=== PATIENT | female | born 1935 | race African-American/Black ===

== ENCOUNTER 2017-09-16 11:57 | Outpatient (CLI) | payer MEDICARE | END 2017-09-16 11:58 | disposition home or self-care (01) | LOC: BICMAMMO 11:57 | PROVIDERS: ATTEND Internal Medicine | DX: Z12.31 Encounter for screening mammogram for malignant neoplasm of breast (principal); R92.1 Mammographic calcification found on diagnostic imaging of breast; N60.32 Fibrosclerosis of left breast; N60.31 Fibrosclerosis of right breast; Z80.3 Family history of malignant neoplasm of breast | CPT/HCPCS: 77066; G0279 ==

== ENCOUNTER 2018-09-20 10:35 | Outpatient (CLI) | payer MEDICARE | END 2018-09-20 10:36 | disposition home or self-care (01) | LOC: BICMAMMO 10:35 | PROVIDERS: ATTEND Internal Medicine | DX: Z12.31 Encounter for screening mammogram for malignant neoplasm of breast (principal); R92.1 Mammographic calcification found on diagnostic imaging of breast; Z80.3 Family history of malignant neoplasm of breast | CPT/HCPCS: 77063; 77067 ==

== ENCOUNTER 2019-07-06 18:02 | Emergency (ER) | payer MEDICARE ==
[2019-07-06 18:31] LABS: #Basophils 0.1 thou/uL (0.0-0.2); #Eosinphils 0.1 thou/uL (0.0-0.7); #Monocytes 0.5 thou/uL (0.11-0.59); #Neutrophils 3.3 thou/uL (1.40-6.50); %Basophils 1.4 % (0.0-1.0); %Eosinophils 1.6 % (0.0-10.0); %Lymphocytes 33.6 % (21.0-51.0); %Monocytes 7.9 % (0.0-10.0); %Neutrophils 55.5 % (42.0-75.0); Hemoglobin 12.6 g/dL (12.0-16.0); Mean Corpuscular HGB CONC 32.4 g/dL (32.0-36.0); Mean Corpuscular Hemoglobin 26.9 pg (27.0-31.0); Mean Platelet Volume 8.1 fL (7.4-10.4); Platelet Count 212 thou/uL (130-400); RBC Distribution Width 13.5 % (11.5-14.5); Red Blood Cell (RBC) Count 4.68 mill/uL (4.20-5.40); White Blood Cell (WBC) Count 5.9 thou/uL (4.8-10.8)
[2019-07-06] MEDS ORDERED: cloNIDine 0.1 MG TAB ONE (18:51)
--- NOTE | 2019-07-06 18:51 | RAD ---
XR Chest 1 View Portable HISTORY: Chest pain COMPARISON: None FINDINGS: The heart size is at upper limits of normal. The lungs are well expanded without focal area s of consolidation, pneumothorax or pleural effusions. IMPRESSION: No radiographic evidence of acute cardiopulmonary process.
[2019-07-06 18:56] LABS: ALT (SGPT) 18 U/L (8-55); AST (SGOT) 24 U/L (5-34); Albumin 4.3 g/dL (3.4-4.8); Alkaline Phosphatase 66 U/L (40-110); Anion Gap 12 mmol/L (10-20); BUN (Urea Nitrogen) 20 mg/dL (9.8-20.1); Bilirubin, Total 0.4 mg/dL (0.2-1.2); CK (CPK) 280 U/L (29-168); Calc. Creatinine Clearance 0 mL/min (70-130); Calcium 9.7 mg/dL (7.8-10.44); Carbon Dioxide 30 mmol/L (23-31); Chloride 105 mmol/L (98-107); Estimated GFR-MDRD 72; Globulin 2.6 g/dL (2.4-3.5); Glucose 106 mg/dL (83-110); Lipase 23 U/L (8-78); Potassium 3.5 mmol/L (3.5-5.1); Protein, Total 6.9 g/dL (6.0-8.3); Sodium 143 mmol/L (136-145)
--- NOTE | 2019-07-08 16:14 | EKG ---
Test Reason : Blood Pressure : / mmHG Vent. Rate : 075 BPM Atrial Rate : 075 BPM P-R Int : 154 ms QRS Dur : 082 ms QT Int : 394 ms P-R-T Axes : 051 -09 031 degrees QTc Int : 439 ms Normal sinus rhythm Normal ECG Confirmed by BLANKA TAYLOR, PATRICK ([id number]), video news editor FAYE JONES ([id number]) on 07/08/2019 4:13:08 PM Referred By: Confirmed By:PATRICK MOSCOSO MD
== END 2019-07-06 19:18 | disposition home or self-care (01) ==
LOC: ERS 18:02 → EDBD 18:02 → ERS 19:18
DX: S20.219A Contusion of unspecified front wall of thorax, initial encounter (principal); I10 Essential (primary) hypertension; V49.9XXA Car occupant (driver) (passenger) injured in unspecified traffic accident, initial encounter
CPT/HCPCS: 36415; 71045; 80053; 82550; 83690; 84484; 85025; 93005

== ENCOUNTER 2019-09-21 09:30 | Outpatient (CLI) | payer MEDICARE ==
--- NOTE | 2019-09-22 12:41 | MMO ---
Bilateral MAMMO Bilat Screen [facility]. CLINICAL HISTORY: Patient is 84 years old and is seen for screening. The patient has the following family history of breast cancer: niece, malignant (generic), X2. The patient has no personal history of cancer. The patient has a history of left Excisional Biopsy in 1982 - benign - CYST. VIEWS: The views performed were: bilateral craniocaudal with tomosynthesis; bilateral mediolateral oblique with tomosynthesis; and left craniocaudal. FILMS COMPARED: The present examination has been compared to prior imaging studies performed at [facility] on 07/23/2015, 08/07/2016, 09/16/2017 and 09/20/2018. This study has been interpreted with the assistance of computer-aided detection. MAMMOGRAM FINDINGS: There are scattered fibroglandular densities. Benign calcifications are noted bilaterally. There are no suspicious masses, suspicious calcifications, or new areas of architectural distortion. IMPRESSION: THERE IS NO MAMMOGRAPHIC EVIDENCE OF MALIGNANCY. A ROUTINE FOLLOW-UP MAMMOGRAM IN 1 YEAR IS RECOMMENDED. THE RESULTS OF THIS EXAM WERE SENT TO THE PATIENT. ACR BI-RADS Category 2 - Benign finding MAMMOGRAPHY NOTE: 1. A negative mammogram report should not delay a biopsy if a dominant of clinically suspicious mass is present. 2. Approximately 10% to 15% of breast cancers are not detected by mammography. 3. Adenosis and dense breasts may obscure an underlying neoplasm. Reported by: CARIN BANERJEE MD Electonically Signed: [id number]
== END 2019-09-21 09:31 | disposition home or self-care (01) ==
LOC: BICMAMMO 09:30
PROVIDERS: ATTEND Internal Medicine
DX: Z12.31 Encounter for screening mammogram for malignant neoplasm of breast (principal); Z80.3 Family history of malignant neoplasm of breast; Z91.89 Other specified personal risk factors, not elsewhere classified
CPT/HCPCS: 77063; 77067

== ENCOUNTER 2020-10-01 11:28 | Outpatient (CLI) | payer MEDICARE ==
--- NOTE | 2020-10-01 13:32 | MMO ---
Bilateral MAMMO Bilat Screen [facility]. CLINICAL HISTORY: Patient is 85 years old and is seen for screening. The patient has the following family history of breast cancer: niece, malignant (generic), X2. The patient has no personal history of cancer. The patient has a history of left Excisional Biopsy in 1982 - benign - CYST. VIEWS: The views performed were: bilateral craniocaudal with tomosynthesis and bilateral mediolateral oblique with tomosynthesis. FILMS COMPARED: The present examination has been compared to prior imaging studies performed at [facility] on 08/07/2016, 09/16/2017, 09/20/2018 and 09/21/2019. This study has been interpreted with the assistance of computer-aided detection. MAMMOGRAM FINDINGS: There are scattered fibroglandular densities. Benign calcifications are noted bilaterally. There are no suspicious masses, suspicious calcifications, or new areas of architectural distortion. IMPRESSION: THERE IS NO MAMMOGRAPHIC EVIDENCE OF MALIGNANCY. A ROUTINE FOLLOW-UP MAMMOGRAM IN 1 YEAR IS RECOMMENDED. THE RESULTS OF THIS EXAM WERE SENT TO THE PATIENT. ACR BI-RADS Category 2 - Benign finding MAMMOGRAPHY NOTE: 1. A negative mammogram report should not delay a biopsy if a dominant of clinically suspicious mass is present. 2. Approximately 10% to 15% of breast cancers are not detected by mammography. 3. Adenosis and dense breasts may obscure an underlying neoplasm. Reported by: CARIN BANERJEE MD Electonically Signed: [id number]
== END 2020-10-01 11:29 | disposition home or self-care (01) ==
LOC: BICMAMMO 11:28
PROVIDERS: ATTEND Internal Medicine
DX: Z12.31 Encounter for screening mammogram for malignant neoplasm of breast (principal); Z80.3 Family history of malignant neoplasm of breast
CPT/HCPCS: 77063; 77067

== ENCOUNTER 2022-08-18 09:12 | Outpatient (CLI) | payer MEDICARE | END 2022-08-18 09:13 | disposition home or self-care (01) | LOC: BICMAMMO 09:12 | PROVIDERS: ATTEND Specialist | DX: D05.11 Intraductal carcinoma in situ of right breast (principal); R92.1 Mammographic calcification found on diagnostic imaging of breast | CPT/HCPCS: 77066; G0279 ==

== ENCOUNTER 2022-08-29 09:17 | Outpatient (CLI) | payer MEDICARE | END 2022-08-29 09:18 | disposition home or self-care (01) | LOC: BICMRI 09:17 | PROVIDERS: ATTEND Specialist | DX: D05.11 Intraductal carcinoma in situ of right breast (principal) | CPT/HCPCS: 82565; C8908; A9577 ==

== ENCOUNTER 2022-09-14 13:05 | Inpatient (IN) | payer MEDICARE ==
[~2022-09-14 13:05] MED LIST: Iopamidol 370 76% 100 ML VIAL ONE; Magnevist 469MG/ML 20 ML VIAL ONE
[2022-09-14 14:11] LABS: #Eosinphils 0.1 thou/uL (0.0-0.7); #Lymphocytes 1.3 thou/uL (1.20-3.40); #Monocytes 0.5 thou/uL (0.11-0.59); #Neutrophils 3.5 thou/uL (1.40-6.50); %Basophils 0.7 % (0.0-1.0); %Eosinophils 1.3 % (0.0-10.0); %Lymphocytes 23.9 % (21.0-51.0); %Monocytes 8.8 % (0.0-10.0); %Neutrophils 65.2 % (42.0-75.0); Hemoglobin 13.2 g/dL (12.0-16.0); Mean Corpuscular HGB CONC 32.2 g/dL (32.0-36.0); Mean Corpuscular Hemoglobin 27.7 pg (27.0-31.0); Mean Corpuscular Volume 86.1 fl (78.0-98.0); Mean Platelet Volume 8.3 fL (7.4-10.4); Platelet Count 211 10x3/uL (130-400); RBC Distribution Width 13.7 % (11.5-14.5); Red Blood Cell (RBC) Count 4.75 mill/uL (4.20-5.40); White Blood Cell (WBC) Count 5.4 10x3/uL (4.8-10.8)
[2022-09-14 14:32] LABS: ALT (SGPT) 20 U/L (8-55); AST (SGOT) 22 U/L (5-34); Albumin 4.1 g/dL (3.4-4.8); Alkaline Phosphatase 62 U/L (40-110); Anion Gap 11 mmol/L (10-20); BUN (Urea Nitrogen) 15 mg/dL (9.8-20.1); Bilirubin, Total 0.7 mg/dL (0.2-1.2); Calc. Creatinine Clearance 0 mL/min (70-130); Calcium 10.2 mg/dL (7.8-10.44); Carbon Dioxide 30 mmol/L (23-31); Chloride 105 mmol/L (98-107); Estimated GFR 66; Globulin 2.9 g/dL (2.4-3.5); Glucose 111 mg/dL (83-110); Potassium 3.7 mmol/L (3.5-5.1); Sodium 142 mmol/L (136-145)
[2022-09-14] MEDS ORDERED: HYDROcodone/Acetaminophen 10/325 mg Tablet ONE (16:45)
[2022-09-14] MEDS ORDERED: Acetaminophen 325 MG TAB PO PRN (18:58)
[2022-09-14] MEDS ORDERED: Ondansetron PF 4 MG/2 ML Vial IVP PRN (18:58)
[2022-09-14] MEDS ORDERED: Ondansetron ODT 4 MG TAB PO PRN (18:58)
[2022-09-14] MEDS ORDERED: Morphine 2 MG/ML VIAL SLOW IVP PRN (19:03)
[2022-09-14] MEDS ORDERED: hydrALAZINE 20 MG/ML VIAL SLOW IVP PRN (19:51)
[2022-09-14 20:59] LABS: Hemoglobin 13.1 g/dL (12.0-16.0); Mean Corpuscular HGB CONC 33.1 g/dL (32.0-36.0); Mean Corpuscular Hemoglobin 28.3 pg (27.0-31.0); Mean Corpuscular Volume 85.5 fl (78.0-98.0); Mean Platelet Volume 9.6 fL (7.4-10.4); Platelet Count 192 10x3/uL (130-400); RBC Distribution Width 13.8 % (11.5-14.5); Red Blood Cell (RBC) Count 4.62 mill/uL (4.20-5.40); White Blood Cell (WBC) Count 8.2 10x3/uL (4.8-10.8)
[2022-09-14 21:00] LABS: Anion Gap 15 mmol/L (10-20); BUN (Urea Nitrogen) 18 mg/dL (9.8-20.1); Calc. Creatinine Clearance 0 mL/min (70-130); Carbon Dioxide 26 mmol/L (23-31); Chloride 105 mmol/L (98-107); Estimated GFR 72; Glucose 136 mg/dL (83-110); Sodium 142 mmol/L (136-145)
[2022-09-14 21:22] LABS: Lymphocytes 17 % (21-51); MDiff Complete? YES; Monocytes 8 % (0-10); Neutrophil 71 % (42-75); Platelet Morphology Comment Appears Adequate; RBC Morphology Normal; Reactive Lymphocytes 3 % (0-10)
[2022-09-14] MEDS ORDERED: HYDROcodone/Acetaminophen 7.5/325 mg Tablet ONE (22:07)
[2022-09-14] MEDS: HYDROcodone/Acetaminophen 7.5/325 mg Tablet PO PRN (22:11)
[2022-09-15 01:16] VITALS: BMI 25.7
[2022-09-15] MEDS ORDERED: cloNIDine 0.1 MG TAB PO SCH (04:30)
[2022-09-15] MEDS: Lisinopril 20 MG TAB PO SCH (08:58)
[2022-09-15] MEDS: Furosemide 40 MG TAB PO SCH (08:58)
[2022-09-15] MEDS: hydrALAZINE 25 MG TAB PO SCH (08:58)
[2022-09-15] MEDS: Loratadine 10 MG TAB PO SCH (08:59)
[2022-09-15] MEDS: HYDROcodone/Acetaminophen 7.5/325 mg Tablet PO PRN (09:00)
[2022-09-16] MEDS: HYDROcodone/Acetaminophen 7.5/325 mg Tablet PO PRN ×2 (00:02→21:32)
[2022-09-16] MEDS ORDERED: guaiFENesin/DM ER PO SCH (00:15)
[2022-09-16] MEDS: Lisinopril 20 MG TAB PO SCH (09:11)
[2022-09-16] MEDS: Anastrozole 1 MG TAB PO SCH (09:11)
[2022-09-16] MEDS: Furosemide 40 MG TAB PO SCH (09:11)
[2022-09-16] MEDS: hydrALAZINE 25 MG TAB PO SCH (09:11)
[2022-09-16] MEDS: Loratadine 10 MG TAB PO SCH (09:12)
[2022-09-16] MEDS: guaiFENesin/DM ER PO SCH ×2 (09:12→21:33)
[2022-09-17] MEDS: hydrALAZINE 25 MG TAB PO SCH (09:31)
[2022-09-17] MEDS: Loratadine 10 MG TAB PO SCH (09:31)
[2022-09-17] MEDS: Lisinopril 20 MG TAB PO SCH (09:31)
[2022-09-17] MEDS: Furosemide 40 MG TAB PO SCH (09:32)
[2022-09-17] MEDS: Anastrozole 1 MG TAB PO SCH (09:32)
[2022-09-17] MEDS: guaiFENesin/DM ER PO SCH ×2 (12:04→20:48)
[2022-09-17] MEDS ORDERED: Amlodipine 5 MG TAB PO SCH (13:15)
[2022-09-17] MEDS: hydrALAZINE 10 MG TAB PO SCH ×2 (18:16→20:47)
[2022-09-18] MEDS ORDERED: Artificial Tear Sol 15 ML BOT EA EYE PRN (00:06)
[2022-09-18] MEDS ORDERED: Polyvinyl Alcohol 1.4%/Povidone 0.6% Opth Drops EA EYE PRN (00:49)
[2022-09-18 05:59] LABS: Anion Gap 8 mmol/L (10-20); BUN (Urea Nitrogen) 15 mg/dL (9.8-20.1); Calc. Creatinine Clearance 61 mL/min (70-130); Calcium 9.7 mg/dL (7.8-10.44); Carbon Dioxide 31 mmol/L (23-31); Chloride 102 mmol/L (98-107); Estimated GFR 83; Glucose 116 mg/dL (83-110); Potassium 3.4 mmol/L (3.5-5.1); Sodium 138 mmol/L (136-145)
[2022-09-18] MEDS ORDERED: Amlodipine 5 MG TAB PO SCH (09:00)
[2022-09-18] MEDS: guaiFENesin/DM ER PO SCH ×2 (09:47→20:12)
[2022-09-18] MEDS: Furosemide 40 MG TAB PO SCH (09:47)
[2022-09-18] MEDS: Loratadine 10 MG TAB PO SCH (09:47)
[2022-09-18] MEDS: Anastrozole 1 MG TAB PO SCH (09:47)
[2022-09-18] MEDS: hydrALAZINE 10 MG TAB PO SCH ×4 (12:56→20:12)
[2022-09-18] MEDS: Lisinopril 20 MG TAB PO SCH (15:49)
[2022-09-18] MEDS ORDERED: Potassium Chloride 20 MEQ TAB PO SCH (17:00)
[2022-09-19] MEDS: Lisinopril 20 MG TAB PO SCH (08:58)
[2022-09-19] MEDS: guaiFENesin/DM ER PO SCH (08:59)
[2022-09-19] MEDS: Anastrozole 1 MG TAB PO SCH (08:59)
[2022-09-19] MEDS: Furosemide 40 MG TAB PO SCH (08:59)
[2022-09-19] MEDS: Loratadine 10 MG TAB PO SCH (08:59)
[2022-09-19] MEDS: hydrALAZINE 10 MG TAB PO SCH ×2 (08:59→12:51)
[2022-09-19 16:55] VITALS: BP 135/58; TEMP 98.4
== END 2022-09-19 17:10 | disposition home health service (06) | DRG 54 ==
LOC: ERS 13:05 → ERHOLD 18:21 → MSONC 09-15 00:23
PROVIDERS: ADMIT Family Medicine; ATTEND Family Medicine
DX: D32.0 Benign neoplasm of cerebral meninges (principal); G93.5 Compression of brain; C79.51 Secondary malignant neoplasm of bone; Z66 Do not resuscitate; Z20.822 Contact with and (suspected) exposure to COVID-19; D05.12 Intraductal carcinoma in situ of left breast; I10 Essential (primary) hypertension; S82.431A Displaced oblique fracture of shaft of right fibula, initial encounter for closed fracture; E78.00 Pure hypercholesterolemia, unspecified; W18.39XA Other fall on same level, initial encounter; Z88.8 Allergy status to other drugs, medicaments and biological substances; Y92.009 Unspecified place in unspecified non-institutional (private) residence as the place of occurrence of the external cause; Z79.899 Other long term (current) drug therapy; Z98.890 Other specified postprocedural states; Z80.3 Family history of malignant neoplasm of breast; Z79.811 Long term (current) use of aromatase inhibitors
CPT/HCPCS: 29515; 36415; 70450; 70553; 71045; 71260; 74177; 77014; 77334; 78306; 80048; 80053; 84484; 85025; A9503; A9579; Q9967; U0003; U0005

== ENCOUNTER 2022-12-14 23:34 | Inpatient (IN) | payer MEDICARE ==
[2022-12-15 01:05] LABS: ALT (SGPT) 30 U/L (8-55); AST (SGOT) 28 U/L (5-34); Albumin 4.2 g/dL (3.4-4.8); Alkaline Phosphatase 101 U/L (40-110); Anion Gap 15 mmol/L (10-20); BUN (Urea Nitrogen) 24 mg/dL (9.8-20.1); Bilirubin, Total 0.8 mg/dL (0.2-1.2); Calc. Creatinine Clearance 0 mL/min (70-130); Calcium 10.9 mg/dL (7.8-10.44); Carbon Dioxide 28 mmol/L (23-31); Chloride 104 mmol/L (98-107); Estimated GFR 78; Globulin 3.4 g/dL (2.4-3.5); Glucose 159 mg/dL (83-110); Potassium 4.6 mmol/L (3.5-5.1); Protein, Total 7.6 g/dL (5.8-8.1); Sodium 142 mmol/L (136-145)
[2022-12-15 01:08] LABS: #Lymphocytes 0.9 thou/uL (1.20-3.40); #Monocytes 0.2 thou/uL (0.11-0.59); %Basophils 0.2 % (0.0-1.0); %Eosinophils 0.1 % (0.0-10.0); %Lymphocytes 11.9 % (21.0-51.0); %Monocytes 3.3 % (0.0-10.0); %Neutrophils 84.5 % (42.0-75.0); Hemoglobin 14.6 g/dL (12.0-16.0); Mean Corpuscular Hemoglobin 27.4 pg (27.0-31.0); Mean Corpuscular Volume 85.4 fl (78.0-98.0); Mean Platelet Volume 9.7 fL (7.4-10.4); Platelet Count 117 10x3/uL (130-400); Platelet Morphology Comment Appears Decreased; RBC Distribution Width 15.3 % (11.5-14.5); RBC Morphology Within Normal Limits; Red Blood Cell (RBC) Count 5.32 mill/uL (4.20-5.40); White Blood Cell (WBC) Count 7.1 10x3/uL (4.8-10.8)
[2022-12-15] MEDS ORDERED: Ondansetron PF 4 MG/2 ML Vial IVP PRN (03:46)
[2022-12-15] MEDS ORDERED: Communication Order-Pharmacy FS ONE (03:48)
[2022-12-15 05:13] VITALS: BMI 21.7
[2022-12-15] MEDS ORDERED: Dexamethasone 1 MG TAB PO SCH (08:15)
[2022-12-15] MEDS: Lisinopril 20 MG TAB PO SCH (08:34)
[2022-12-15] MEDS: Anastrozole 1 MG TAB PO SCH (08:34)
[2022-12-15] MEDS: Loratadine 10 MG TAB PO SCH (08:35)
[2022-12-15] MEDS: Famotidine/PF 20 mg/2ml Vial SLOW IVP SCH ×2 (08:35→20:14)
[2022-12-15] MEDS: HYDROcodone/Acetaminophen 5/325 mg Tablet PO PRN (08:42)
[2022-12-15] MEDS: hydrALAZINE 10 MG TAB PO SCH ×4 (10:03→20:14)
[2022-12-15] MEDS: Dexamethasone 1 MG TAB PO SCH (17:17)
[2022-12-16 07:54] LABS: Anion Gap 14 mmol/L (10-20); Calc. Creatinine Clearance 59 mL/min (70-130); Calcium 9.5 mg/dL (7.8-10.44); Carbon Dioxide 23 mmol/L (23-31); Chloride 108 mmol/L (98-107); Estimated GFR 86; Glucose 115 mg/dL (83-110); Potassium 4.2 mmol/L (3.5-5.1); Sodium 141 mmol/L (136-145)
[2022-12-16 07:56] LABS: BUN (Urea Nitrogen) 13 mg/dL (9.8-20.1)
[2022-12-16] MEDS: Lisinopril 20 MG TAB PO SCH (08:49)
[2022-12-16] MEDS: Dexamethasone 1 MG TAB PO SCH ×2 (08:49→18:37)
[2022-12-16] MEDS: Famotidine/PF 20 mg/2ml Vial SLOW IVP SCH ×2 (08:49→20:42)
[2022-12-16] MEDS: Loratadine 10 MG TAB PO SCH (08:50)
[2022-12-16] MEDS: Anastrozole 1 MG TAB PO SCH (08:50)
[2022-12-16] MEDS: hydrALAZINE 10 MG TAB PO SCH ×4 (08:50→20:47)
[2022-12-16 08:56] LABS: #Monocytes 0.4 thou/uL (0.11-0.59); #Neutrophils 6.5 thou/uL (1.40-6.50); %Basophils 0.2 % (0.0-1.0); %Eosinophils 0.1 % (0.0-10.0); %Lymphocytes 16.9 % (21.0-51.0); %Monocytes 5.2 % (0.0-10.0); %Neutrophils 76.9 % (42.0-75.0); Hemoglobin 13.9 g/dL (12.0-16.0); Mean Corpuscular HGB CONC 30.7 g/dL (32.0-36.0); Mean Corpuscular Hemoglobin 25.8 pg (27.0-31.0); Mean Corpuscular Volume 84.2 fl (78.0-98.0); Platelet Count 127 10x3/uL (130-400); RBC Distribution Width 17.1 % (11.5-14.5); Red Blood Cell (RBC) Count 5.38 mill/uL (4.20-5.40); White Blood Cell (WBC) Count 8.4 10x3/uL (4.8-10.8)
[2022-12-16] MEDS: HYDROcodone/Acetaminophen 5/325 mg Tablet PO PRN (18:43)
[2022-12-16] MEDS: hydrALAZINE 25 MG TAB PO PRN (18:43)
[2022-12-16] MEDS: Apixaban 5 MG TAB PO SCH (20:43)
[2022-12-17] MEDS: hydrALAZINE 25 MG TAB PO PRN (09:17)
[2022-12-17] MEDS: Lisinopril 20 MG TAB PO SCH (09:18)
[2022-12-17] MEDS: Loratadine 10 MG TAB PO SCH (09:18)
[2022-12-17] MEDS: Apixaban 5 MG TAB PO SCH (09:18)
[2022-12-17] MEDS: Anastrozole 1 MG TAB PO SCH (09:18)
[2022-12-17] MEDS: Dexamethasone 1 MG TAB PO SCH (09:18)
[2022-12-17] MEDS: Famotidine/PF 20 mg/2ml Vial SLOW IVP SCH (09:24)
[2022-12-17] MEDS: hydrALAZINE 10 MG TAB PO SCH ×2 (10:27→14:02)
[2022-12-17 12:35] VITALS: BP 158/84; TEMP 97.5
[2022-12-21] MEDS ORDERED: Apixaban 5 MG TAB PO SCH (21:00)
== END 2022-12-17 14:57 | disposition home or self-care (01) | DRG 301 ==
LOC: ERS 23:34 → T4-B 12-15 03:24 → OBSVTOIN 12-16 13:08
PROVIDERS: ADMIT Hospitalist; ATTEND Internal Medicine
DX: I82.411 Acute embolism and thrombosis of right femoral vein (principal); I82.431 Acute embolism and thrombosis of right popliteal vein; I82.441 Acute embolism and thrombosis of right tibial vein; I10 Essential (primary) hypertension; G93.9 Disorder of brain, unspecified; Z88.8 Allergy status to other drugs, medicaments and biological substances; Z79.899 Other long term (current) drug therapy
CPT/HCPCS: 36415; 70450; 71045; 80048; 80053; 83880; 85025; 93005; 96372; 96374; 96375; 96376; G0378; J1650; J8540; S0028